=== PATIENT | male | born 1935 | race Caucasian/White ===

== ENCOUNTER 2017-03-24 11:50 | Emergency (ER) | payer MEDICARE, OTHER ==
[~2017-03-24 11:50] MED LIST: AMARYL2 PO; ASAB PO; BEN25 PO; C1; CAT2 PO; CEFADROXIL PO; CLARIT10 PO; CORDARONE PO; CRESTOR20 MG PO; EYE INJECTION OP; EYE INJECTIONS; GENTEAL OP; GLUCPH8 PO; HARD NAILS PO; HYDROCHLOROT12.5 MG PO; LIPITOR20 PO; LISINOPRIL40 MG PO; LOP100 PO; LOP25 PO; LOVENOX1C SC; METFORMIN PO; NITROQUICK0.4 MG SL; NITROSTAT0.4 MG SL; NORV5 PO; PLAVIX PO; PRESERVISION A1 EACH PO; PRESERVISION PO; PRIN20 PO; SAW PALMETT2 PO; TRAN200 PO; VITAMIN B-12 PO; VITAMIN B-1500 MG PO; VITAMIN D31000 UNIT PO; [UNRECOGNIZED DRUG - REMARK]
[2017-03-24 11:51] LABS: BASOPHILS 0.1 %; BASOPHILS ABSOLUTE 0.01 10/3/uL (0.0-0.16); EOSINOPHILS 1.7 %; EOSINOPHILS ABSOLUTE 0.14 10/3/uL (0.0-0.53); ER CBC TAT 0 Hrs 05 Mins; IMMATURE GRANULOCYTES 1.2 %; LYMPHOCYTES 13.2 %; LYMPHOCYTES ABSOLUTE 1.12 10/3/uL (0.67-4.30); MEAN CORPUS HGB CONC 34.7 g/dL (32.0-36.0); MEAN PLATELET VOLUME 9.2 fL (9.2-13.0); MONOCYTES 11.7 %; MONOCYTES ABSOLUTE 0.99 10/3/uL (0.21-1.20); NEUTROPHILS 72.1 %; NEUTROPHILS ABSOLUTE 6.12 10/3/uL (2.02-8.40); PLATELET COUNT 276 10/3/uL (150-400); RBC DISTRIBUTION WIDTH 15.8 % (12.0-16.0); RED CELL COUNT 4.99 10/6/uL (4.7-6.1); WHITE BLOOD CELLS 8.5 10/3/uL (4.5-10.5)
[2017-03-24 11:52] LABS: HEMATOCRIT 41.2 % (40.0-51.0); HEMOGLOBIN 14.3 g/dL (13.6-17.8); MANUAL DIFF NO %; MEAN CORPUSCULAR HEMOGLOB 28.7 pg (26.0-34.0); MEAN CORPUSCULAR VOLUME 82.6 fL (80-100)
[2017-03-24 12:05] LABS: CALCIUM, SERUM 9.4 MG/DL (8.5-10.4); CHEST PAIN PROFILE TAT 0 Hrs 19 Mins; CHLORIDE, SERUM 98 MMOL/L (96-112); CREATININE 1.02 MG/DL (0.70-1.30); GFR AFRICAN AMERICAN 80 ML/MIN (>=60); GFR NON AFRICAN AMERICAN 69 ML/MIN (>=60); POTASSIUM, SERUM 4.2 MMOL/L (3.5-5.3); SODIUM, SERUM 136 MMOL/L (135-148); TROPONIN I <0.02 NG/ML (<0.05)
[2017-03-24 12:06] LABS: BUN (BLOOD UREA NITROGEN) 10 MG/DL (6-23); CO2 (CARBON DIOXIDE) 28 MMOL/L (24-34); GLUCOSE, SERUM 103 MG/DL (60-99)
[2017-03-24 12:12] LABS: PARTIAL THROMBO TIME 25.3 SEC (22.5-37.2); PROTIME (NOT ORD) 13.1 SEC (12.0-14.5)
== END 2017-03-24 13:02 | disposition home or self-care (01) ==
LOC: ER 11:50
PROVIDERS: Emergency Medicine
DX: J40 Bronchitis, not specified as acute or chronic (principal); E11.9 Type 2 diabetes mellitus without complications; I10 Essential (primary) hypertension; Z95.5 Presence of coronary angioplasty implant and graft; I25.2 Old myocardial infarction; I25.10 Atherosclerotic heart disease of native coronary artery without angina pectoris; Z79.82 Long term (current) use of aspirin; Z79.899 Other long term (current) drug therapy; Z79.84 Long term (current) use of oral hypoglycemic drugs
CPT/HCPCS: 71020; 80048; 83735; 84484; 85025; 85610; 85730; 87070; 87205; 93005; 94640; 99284